=== PATIENT | male | born 1985 | race Hispanic/Latino ===

== ENCOUNTER 2023-06-27 20:19 | Emergency (ER) | payer SELFPAY ==
[~2023-06-27] VITALS: Ht 177.8 cm; Wt 127.9 kg
[2023-06-27] MEDS ORDERED: KETOROLAC TROMETHAMINE 30 MG/ML VIAL IV STA (21:08)
[2023-06-27] MEDS ORDERED: KETOROLAC TROMETHAMINE 30 MG/ML VIAL ONE (21:56)
[2023-06-27 23:07] VITALS: BP 164/94; PULSE 94; RESP 18; TEMP 98.8; O2SAT 98
== END 2023-06-27 23:07 | disposition home or self-care (01) ==
LOC: FSED 20:25
DX: H57.12 Ocular pain, left eye (principal); R73.9 Hyperglycemia, unspecified; E87.6 Hypokalemia; I10 Essential (primary) hypertension; Z91.148 Patient's other noncompliance with medication regimen for other reason
CPT/HCPCS: 70450; 80053; 85025; 96374; 99283; J1885